=== PATIENT | female | born 1980 | race Asian ===

== ENCOUNTER 2016-06-24 10:48 | Emergency (ER) | payer BC ==
[~2016-06-24] VITALS: Ht 177.8 cm; Wt 63.0 kg
[~2016-06-24 10:48] MED LIST: CALC600T9; OMEGCAP2; PRENTAB26 PO
[2016-06-24 10:59] VITALS: TEMP 36.5; Ht 177.8 cm; Wt 63.0 kg
--- NOTE | 2016-06-24 11:52 | DIAGNOSTIC IMAGING REPORT ---
Study: Breast ultrasound HISTORY: Breast lump FINDINGS: At the site of clinically palpable nodularity involving the left breast at its junction with the superior chest wall is a complex cystic structure measuring 9 x 8 mm. No additional findings are appreciated. IMPRESSION: 9 x 8 mm complex cystic structure corresponding to the area of nodularity at the juncture of the left chest wall and superior left breast. Diagnostic mammographic evaluation most likely with a repeat ultrasound and/or aspiration is suggested. Electronically signed by: Brady Paul M.D. 06/24/2016 11:51 AM Dictated Date/Time: 06/24/2016 11:48 AM
--- NOTE | 2016-06-24 12:07 | EMERGENCY ROOM VISIT NOTE ---
History First contact with patient: 11:03 Chief Complaint: OTHER COMPLAINT Stated Complaint: LUMP NEAR BREAST History of Present Illness The patient is a 36 year old female who presents to the Emergency Room with complaints of a lump on the left chest wall. The patient was noticed a small lump just lateral to the sternum several days ago. The patient denies any pain , redness. The patient states it feels " firm". The patient is currently breast-feeding her 1-year-old child. The patient denies any chest pain or shortness of breath Review of Systems 6 system review was performed and was negative unless stated otherwise in history of present illness. Past Medical/Surgical History No significant past medical history Social History Smoking Status: Never Smoker Smokeless Tobacco Use: No Alcohol Use: none Drug Use: none Marital Status: Housing Status: lives with family Occupation Status: employed Current/Historical Medications No Active Prescriptions or Reported Meds Allergies Coded Allergies: No Known Allergies (Unverified , 06/24/16) Physical Exam Vital Signs Date Time Temp Pulse Resp B/P Pulse Ox O2 Delivery O2 Flow Rate FiO2 06/24/16 10:59 36.5 80 16 91/55 98 Room Air Physical Exam GENERAL: 36-year-old female appears in no acute distress. MENTAL Status: Alert and oriented 3. NECK: Supple, no lymphadenopathy noted. No carotid bruits noted. LUNGS: Clear auscultation without wheezes rales or rhonchi. CARDIAC: Regular rate and rhythm without murmur. Pulses is full and equal throughout. LEFT CHEST WALL: There is a firm pea sized nodule between 2 ribs just lateral to the sternum. It is only slightly tender to palpation. LEFT BREAST: No erythema or edema noted. No palpable masses. No nipple discharge. Medical Decision & Procedures ER Provider Diagnostic Interpretation: Study: Breast ultrasound HISTORY: Breast lump FINDINGS: At the site of clinically palpable nodularity involving the left breast at its junction with the superior chest wall is a complex cystic structure measuring 9 x 8 mm. No additional findings are appreciated. IMPRESSION: 9 x 8 mm complex cystic structure corresponding to the area of nodularity at the juncture of the left chest wall and superior left breast. Diagnostic mammographic evaluation most likely with a repeat ultrasound and/or aspiration is suggested. Electronically signed by: Brady Paul M.D. 06/24/2016 11:51 AM Dictated Date/Time: 06/24/2016 11:48 AM ED Course The patient was evaluated. I discussed the case with Dr. Last who agreed with treatment plan. An ultrasound of this area was performed and interpreted by the radiologist as above with a 9 x 8 mm cystic structure. Follow-up with mammography the and/or ultrasound and/or aspiration was recommended. I discussed the findings with the patient. She already has a mammogram scheduled for next Monday. I told her she should make an appointment with her ANODE REBUILDER on Monday to discuss the findings and further treatment plan. The patient and were in agreement and discharged home in stable condition. Medical Decision Differential diagnosis include lymph node, cyst, neoplasm Impression Primary Impression: Mass of left chest wall Departure Information Dispostion Home / Self-Care Condition GOOD Prescriptions No Active Prescriptions or Reported Meds Referrals Haleigh Blanchard M.D. (PCP) Forms HOME CARE DOCUMENTATION FORM, IMPORTANT VISIT INFORMATION, WORK / SCHOOL INSTRUCTIONS Patient Instructions My [facility] Additional Instructions Keep scheduled appointment for your mammogram on Monday. Call your ANODE REBUILDER and set up an appointment for next Monday. Further evaluation and treatment will be based upon mammogram results and recommendation from your ANODE REBUILDER.
[2016-06-24 12:12] VITALS: BP 121/68; PULSE 79; O2SAT 99
== END 2016-06-24 12:14 | disposition home or self-care (01) ==
LOC: C.EDB 10:50 → C.EDD 12:14
DX: R22.2 Localized swelling, mass and lump, trunk (principal)

== ENCOUNTER → 2016-06-29 | Outpatient (CLI) | payer BC ==
--- NOTE | 2016-06-29 14:53 | MAMMOGRAPHY REPORT ---
ULTRASOUND OF LEFT BREAST: 06/29/2016 CLINICAL HISTORY: The patient reports a palpable left breast lump for which she went to the emergenc y room on 06/24/2016 and had an ultrasound of the mass. The patient reports that the lump is much sm aller in size than when she first felt it. She denies any associated erythema of the overlying skin or significant pain. She is currently breast-feeding. COMPARISON: Ultrasound of the left breast dated 06/24/2016. TECHNIQUE: Real-time ultrasound of the left breast was performed. FINDINGS: Targeted ultrasound was performed of the area of the palpable lump pointed out by the pat ient, in the left breast at approximately 11:00, 9 cm from the nipple. At the site of the palpable lump there is an oval nearly anechoic cystic-appearing circumscribed mass which measures 4 x 2 x 2 m m. The mass is significantly decreased in size compared to the prior exam dated 06/24/2016, where th e mass measured 10 x 4 x 8 mm. Given the interval decrease in size, the mass is benign. Given that the patient is breast-feeding, mammograms were not performed. IMPRESSION: ACR BI-RADS CATEGORY 2: BENIGN Significant interval decrease in size of hypoechoic mass in the left breast at 11:00, at the site of the palpable lump. Given the interval decrease in size, the mass is benign and likely represents a resolving cyst. There is no sonographic evidence of malignancy. Recommend clinical follow-up. Th e patient was verbally notified of the results. April Byrnes M.D. ah/:06/29/2016 10:54:53 Lan Manager: April Byrnes MD, [facility] letter sent: Normal 1/2 BI-RADS Code: ACR BI-RADS Category 2: Benign
== END ==
LOC: C.MAMM 10:04
PROVIDERS: ATTEND Physician Assistant
DX: N63 Unspecified lump in breast (principal)